=== PATIENT | female | born 1975 | race Caucasian/White ===

== ENCOUNTER 2020-03-15 16:28 | Outpatient (REF) | payer OTHER, SELFPAY ==
[2020-03-15 17:32] LABS: MANUAL DIFF FLAG NO
[2020-03-15 17:46] LABS: Basophils Absolute Auto 0.1 X10*3/uL (0.0-0.2); Basophils Percent Auto 0.6 % (0-2); Eosinophils Absolute Auto 0.1 X10*3/uL (0.0-0.4); Eosinophils Percent Auto 0.7 % (0-4); Hematocrit 46.1 % (37-47); Hemoglobin 14.8 g/dl (12.0-16.0); Imm Gran Abs Auto 0.02 X10*3/uL (0.00-0.03); Imm Gran Pct Auto 0.2 % (0.0-0.4); Lymphocytes Absolute Auto 1.3 X10*3/uL (1.2-4.9); Lymphocytes Percent Auto 15.8 % (20-40); Mean Corpuscular HGB Conc 32.1 g/dl (31.0-35.0); Mean Corpuscular Hemoglobin 29.8 pg (27.0-33.0); Mean Corpuscular Volume 92.8 fL (80-98); Mean Platelet Volume 10.5 fL (9.4-12.3); Monocytes Absolute Auto 0.6 X10*3/uL (0.1-1.2); Monocytes Percent Auto 6.8 % (2-11); Neutrophils Absolute Auto 6.2 X10*3/uL (2.0-8.3); Neutrophils Percent Auto 75.9 % (45-73); Platelet Count 276 X10*3/uL (160-400); Red Blood Count 4.97 X10*6/uL (4.20-5.50); Red Cell Distribution Width 12.8 % (11.0-16.0); White Blood Count 8.1 X10*3/uL (4.8-10.8)
[2020-03-15 18:06] LABS: Alanine Aminotransferase 10 U/L (0-31); Albumin Level 4.5 g/dL (3.5-5.0); Alkaline Phosphatase 65 U/L (39-117); Aspartate Amino Transferase 36 U/L (5-31); Bilirubin Direct 0.2 mg/dL (0.0-0.5); Bilirubin Total 0.5 mg/dL (0.0-1.0); Total Protein 7.5 g/dL (6.5-8.0)
[2020-03-22 22:31] LABS: JCV Antibody NEGATIVE; JCV Index Value 0.15
== END 2020-03-15 16:29 | disposition home or self-care (01) ==
LOC: HO.LAB 16:28
PROVIDERS: PCP Internal Medicine; Visit Provider Psychiatry & Neurology Neurology
DX: G35 Multiple sclerosis (principal)
CPT/HCPCS: 36415; 80076; 85025; 86711

== ENCOUNTER 2020-09-12 16:40 | Outpatient (REF) | payer OTHER, SELFPAY ==
[2020-09-12 18:08] LABS: MANUAL DIFF FLAG NO
[2020-09-12 18:20] LABS: Basophils Absolute Auto 0.1 X10*3/uL (0.0-0.2); Basophils Percent Auto 0.6 % (0-2); Eosinophils Absolute Auto 0.1 X10*3/uL (0.0-0.4); Eosinophils Percent Auto 0.9 % (0-4); Hematocrit 44.9 % (37-47); Hemoglobin 14.8 g/dl (12.0-16.0); Imm Gran Abs Auto 0.03 X10*3/uL (0.00-0.03); Imm Gran Pct Auto 0.4 % (0.0-0.4); Lymphocytes Absolute Auto 1.6 X10*3/uL (1.2-4.9); Mean Corpuscular Hemoglobin 30.1 pg (27.0-33.0); Mean Corpuscular Volume 91.4 fL (80-98); Mean Platelet Volume 10.5 fL (9.4-12.3); Monocytes Absolute Auto 0.6 X10*3/uL (0.1-1.2); Monocytes Percent Auto 7.6 % (2-11); Neutrophils Absolute Auto 5.4 X10*3/uL (2.0-8.3); Neutrophils Percent Auto 69.5 % (45-73); Platelet Count 276 X10*3/uL (160-400); Red Blood Count 4.91 X10*6/uL (4.20-5.50); Red Cell Distribution Width 12.6 % (11.0-16.0); White Blood Count 7.8 X10*3/uL (4.8-10.8)
[2020-09-12 18:32] LABS: Alanine Aminotransferase 12 U/L (0-31); Albumin Level 4.3 g/dL (3.5-5.0); Alkaline Phosphatase 70 U/L (39-117); Aspartate Amino Transferase 31 U/L (5-31); Bilirubin Direct 0.2 mg/dL (0.0-0.5); Bilirubin Total 0.5 mg/dL (0.0-1.0); Total Protein 7.2 g/dL (6.5-8.0)
== END 2020-09-12 16:41 | disposition home or self-care (01) ==
LOC: HO.LAB 16:40
PROVIDERS: PCP Internal Medicine; Visit Provider Psychiatry & Neurology Neurology
DX: G35 Multiple sclerosis (principal)
CPT/HCPCS: 36415; 80076; 85025

== ENCOUNTER 2025-04-05 15:50 | Outpatient (AMB) | payer OTHER, SELFPAY ==
--- NOTE | 2025-04-05 15:51 | A.OFFVIS_ITS ---
Intake Visit Reasons: 6 months f/u Allergies No Known Allergies (No Known Allergies*) Allergy (Unverified 04/05/25 15:58) Medication List - Last Reconciled 04/05/25 by Karol Bartlett CNP dimethyl fumarate 240 mg PO BID 90 days HPI Comments Details: She was doing okay. MS stable, no new symptoms. Taking dimethyl fumarate twice a day. No significant side effects, may get occasional flushing once a month or less. No spasms. No falls. Energy level was good. Mood was okay. Sleep was okay. 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 Slipped down flight of [employer] stairs in 05/2023, hurt right wrist and left ankle, healed now. Started Tecfidera 08/09/2014, currently on generic. She first developed neurological symptoms in 03/2014, noticed some numbness in left upper and lower lip and adjacent area of cheek while eating and initially thought she was having food allergy. Symptoms lasted for one week and resolved. 2 weeks later, she felt tingling in fingertips of left hand. She could use it normally, no loss of sensation. It resolved after one week. Did not seek medical attention. In mid-06/2014, she woke up from sleep and felt dizzy. She described it as being tired, walking like she had a few drinks and staggering slightly to the left side without falling. Within a week, she was better and the second week symptoms had almost resolved. She bumped into the wall a few times. [facility] Medical History (Updated 04/05/25 @ 15:57 by Karol Bartlett CNP) Seizures Multiple sclerosis Review of Systems Const Denies chills, Denies daytime sleepiness, Denies difficulty sleeping, Denies fatigue, Denies fever(s), Denies frequent falls, Denies headache(s), Denies increased appetite, Denies poor appetite, Denies snoring, Denies weakness, Denies weight gain and Denies weight loss Eyes Denies loss of vision ENT Denies vertigo, Reports dizziness, Denies headache(s) and Denies neck pain Card Denies chest pain at rest, Denies chest pain with activity, Denies syncope, Denies leg edema, Denies palpitations, Denies dyspnea and Denies dyspnea on exertion Resp Denies cough, Denies dyspnea, Denies dyspnea on exertion and Denies snoring GI Denies abdominal pain, Denies constipation, Denies heartburn, Denies diarrhea and Denies nausea Denies urinary frequency, Denies urinary incontinence and Denies urinary urgency Musc Reports abnormal gait, Denies back pain, Denies myalgias, Denies arthralgias, Reports muscle weakness, Denies neck pain, Reports numbness and Reports tingling Neuro Reports abnormal gait, Denies vertigo, Reports dizziness, Denies syncope, Denies frequent falls, Denies headache(s), Denies lack of coordination, Denies loss of vision, Denies memory loss, Reports numbness, Denies Other visual disturbances, Denies restless legs, Denies seizure-like activity, Reports tingling, Denies paresthesias, Denies tremor(s) and Denies weakness Psych Denies anxiety, Denies depression, Denies auditory hallucinations, Denies memory loss and Denies visual hallucinations Endo Denies fatigue and Denies palpitations Physical Exam Const Other: General Appearance:? normal, in no acute distress. Heart:? S1, S2 normal, no murmurs. Lungs:? clear anteriorly and posteriorly. Musculoskeletal:? normal. Extremities:? no edema. Psych:? alert, oriented, cognitive function intact, cooperative with exam. Neuro Other: Abnormal Neurological Findings:?Bilateral hyperreflexia, slightly asymmetrical, worse on the left. Ankle clonus.Plantar responses are equivocal on the right and extensor on the left. Minimal slowing and breakdown of rapid alternating movements in the left upper extremity. Mild truncal ataxia on tandem walking.? Mental Status: alert and oriented X 3. Normal attention, orientation, memory, and affect. Cranial Nerves: Pupils are equal, round, and reactive to light. External ocular muscles are intact. Visual bhatti are full, no ptosis. Face is symmetrical, no facial weakness or droop. Facial sensations are normal. Tongue protrudes in midline. Palate elevates symmetrically. Shoulder shrugging is normal Motor Examination: Slight left triceps weakness. Deep tendon reflexes are 3+?,?Plantars are equivocal on the right and extensor on the left. 4 beats of ankle clonus on the left.? Sensory Exam: Normal light touch, temperature, pinprick, vibration, and joint- position sensations. Rhomberg sign is absent. Coordination: No ataxia. No titubation. Gait Exam: Within normal limits. Cerebellar Signs: [id number] is okay. Extrapyramidal System: No tremor, rigidity with normal facial expressions. No bradykinesia. No bradyphrenia. Normal arm swing and posture. No propulsion or retropulsion. Speech: Normal. Results Reviewed Results Reviewed: 08/03/14 Abnormal EEG due to high-voltage sharp discharges seen in a generalized distribution with a frontal accentuation consistent with generalized cerebral irritability and possible seizure disorder. Clinical correlation is suggested. MRI of the brain without contrast was reviewed. Extensive confluent white matter abnormalities on T2 and flair imaging in the deep white matter, periventricular distribution particularly around the atrium and the occipital horns. Single lesion in the right middle cerebral peduncle. Findings are consistent with multiple sclerosis. Contrast MRI was not done Multiple enhancing lesions on F/U MRI Lyme and labs normal. 02/08/15 MRI shows regression of previous lesions. Only a single pontomesencephalic lesion in right paramedian area with a rim of enhancement. 04/04 was the last MRI at [facility]: Multiple nonenhancing foci of signal abnormality in the white matter Assessment & Plan Assessment & Plan (1) Multiple sclerosis: Code(s): G35 - Multiple sclerosis Category: Medical Plan: Continue dimethyl fumarate 240mg 1 capsule twice a day. Stable on current treatment with no new MS symptoms. Discussed option for MRI (as last MRI was in 2017), declining at this time. Follow up in 6 months or sooner as needed. Coding Level of Care Code Est Pt Level 4 (33759) Diagnoses Multiple sclerosis G35
== END 2025-04-05 16:03 | disposition home or self-care (01) ==
LOC: HO.HSM 15:50
PROVIDERS: PCP Internal Medicine; Visit Provider Registered Nurse
DX: G35.D Multiple sclerosis, unspecified (principal)
CPT/HCPCS: 99214